=== PATIENT | female | born 1990 | race Caucasian/White ===

== ENCOUNTER → 2018-03-23 09:35 | Outpatient (CLI) | payer OTHER, SELFPAY ==
[2018-03-23 11:04] LABS: Absolute Lymphocyte Count 1.98 X10^3/ul (0.83-4.51); Absolute Neutrophil Count 4.7 X10^3/uL (2.0-7.7); Basophil# 0.01 X10^3/uL; Basophil% 0.1 % (0-1); Eosinophil# 0.18 X10^3/uL; Eosinophils% 2.3 % (0-5); Hematocrit 39.5 % (37-47); Hemoglobin 13.2 g/dl (12.0-15.0); Lymphocyte # 1.98 X10^3/ul (4.0); Lymphocyte % 25.7 % (19-41); Mean Corp Hgb Conc 33.4 g/gl (32-36); Mean Corpuscular Hgb 28.2 pg (27.0-32.0); Mean Corpuscular Volume 84.4 fL (81-99); Mean Platelet Vol. 9.4 fl (6.2-12.0); Monocyte# 0.83 X10^3/uL; Monocyte% 10.8 % (0-10); Neutrophil # 4.68 X10^3/uL (2.7-7.7); Neutrophil % 60.8 % (47-70); Platelet Count 328 K/mm3 (150-450); RBC Distribution Width CV 14.2 % (11.6-14.6); RBC Distribution Width SD 43.1 fl (35.1-43.9); Red Blood Count 4.68 M/mm3 (4.2-5.4); White Blood Count 7.7 K/mm3 (4.4-11.0)
[2018-03-23 11:07] LABS: POSITIVE COUNT NO; POSITIVE DIFFERENTIAL NO; POSITIVE MORPHOLOGY NO
[2018-03-23 11:36] LABS: ALB/GLOB Ratio 0.8 RATIO (0.9-2.4); AST(SGOT) 39 U/L (15-37); Alanine Aminotransfer ALT/SGPT 41 U/L (13-56); Albumin, Serum 3.2 g/dL (3.2-5.0); Alkaline Phosphatase 93 U/L (45-117); Anion Gap 9 (5-15); BUN 7 mg/dL (7-18); BUN/Creat Ratio 12.8 RATIO (10-20); Calcium,Total 8.6 mg/dL (8.5-10.1); Chloride 107 mmol/L (98-107); Creatinine, Serum 0.55 mg/dL (0.55-1.02); EST Glomerular Filtration Rate 141 mL/min (>60); Est Glom Filt Rate - Afr Amer 171 mL/min (>60); Globulin 4.2 g/dL (2.2-4.2); Glucose 104 mg/dL (74-106); Glucose Challenge Gest 1H 50g 104 mg/dL (70-140); Potassium 3.5 mmol/L (3.5-5.1); Protein, Total 7.4 g/dL (6.4-8.2); Sodium Level 140 mmol/L (136-145)
[2018-03-24 11:23] LABS: HIV - WCH Non-Reactive (Nonreactive); Rubella IgG 171.4 IU/mL
[2018-03-25 03:07] LABS: HCV Quant. RNA PCR 2490000 IU/mL (.)
[2018-03-25 12:00] LABS: HCV log 10 6.396 (.); HEPATITIS B SURFACE AG Negative (Negative)
[2018-03-26 01:20] LABS: Rapid Plasmin Reagin (RPR) NONREACTIVE (NONREACTIVE)
== END ==
PROVIDERS: Family Provider Obstetrics & Gynecology; PCP Obstetrics & Gynecology; Visit Provider Obstetrics & Gynecology
DX: Z12.4 Encounter for screening for malignant neoplasm of cervix (principal); Z34.90 Encounter for supervision of normal pregnancy, unspecified, unspecified trimester
CPT/HCPCS: 36415; 80053; 82950; 85025; 86592; 86703; 86762; 86850; 86900; 87340; 87522

== ENCOUNTER → 2018-03-23 19:13 | Outpatient (CLI) | payer OTHER, SELFPAY ==
[2018-03-23 22:42] LABS: Chlamydia Trachomatis by PCR Negative (Negative); Neisserai gonorrhoeae by PCR Negative (Negative); Probe Check PASS; Sample Adequacy Control PASS; Specimen Processing Control PASS
[2018-03-25 14:44] LABS: HPV Reflexed? NOT INDICATED
== END ==
PROVIDERS: Visit Provider Obstetrics & Gynecology
DX: Z12.4 Encounter for screening for malignant neoplasm of cervix (principal); Z34.90 Encounter for supervision of normal pregnancy, unspecified, unspecified trimester
CPT/HCPCS: 87086; 87088; 87491; 87591; 88175; G0145

== ENCOUNTER 2018-03-27 00:06 | Emergency (ER) | payer OTHER, SELFPAY ==
[2018-03-27 00:06] VITALS: BP 160/99; PULSE 114; RESP 16; TEMP 36.6; O2SAT 99; BMI 42.0
--- NOTE | 2018-03-27 00:30 | ED.DCSUM_ITS ---
- ER Visit Summary Date of Service: 03/27/18 Chief Complaint: Acute right ear pain History of Present Illness: The patient is a 27 F who presents with acute right ear pain. She stated I believe I was bit by a bug or there is a bug in my ear . She denies swimming. She denies putting anything in her ear. She states if she touches the canal she has pain. She believes it is swollen. She denies any drainage. She does report muffled hearing. She denies fever, chills night sweats. She denies runny nose, postnasal drainage or sore throat. Physical Examination: Next field vital signs remarkable blood pressure 160/97. Heart rate 114. There is discomfort with pulling on the auricle pushing on the tragus on the right. The external auditory canals narrowed and erythematous. There is no drainage. TM is normal. The left ear is normal. Pupils equal round reactive. Extra muscle intact. Conjunctive is not injected. Nares patent with no discharge. Posterior pharynx without erythema XA. Uvula is midline. There is no cervical lymphadenopathy. Test Results: None Emergency Department Course and Treatment: Patient was treated with Cortisporin otic suspension. The bottle was dispensed since pharmacies are closed. Treatment Plan: Cortisporin otic suspension, 4 drops 4 times a day for the next 5-7 days. Disposition: Discharge to home Impression: Acute right otitis externa This note was generated with [employer] dictation software. It may contain incorrect words, spelling, and punctuation that were not noted in review of the chart prior to signing ED Disposition - Plan for ED Patient: Disposition: Home or Assisted Living Chief Complaint: Ear Problem Instructions: ED Otitis Externa Referrals: Care Physician,No Primary [Primary Care Provider] - Additional Instructions: Instill 4 drops of the ear medication 4 times a day for the next 5-7 days. You will need to contact your insurance carrier for referral to primary care physician since she relocated. She states she moved from [facility].
[2018-03-27] MEDS: Neomycin Sulfate/Polymyxin/Hc Susp 10 ML Bottle 4 DRP OTIC (00:41)
== END 2018-03-27 00:52 | disposition home or self-care (01) ==
LOC: ED 00:32
PROVIDERS: Emergency Provider Emergency Medicine
DX: H60.501 Unspecified acute noninfective otitis externa, right ear (principal); Z72.0 Tobacco use
CPT/HCPCS: 99282

== ENCOUNTER → 2020-01-27 12:21 | Outpatient (CLI) | payer MEDICAID, SELFPAY ==
[2020-01-27 13:52] LABS: Absolute Neutrophil Count 4.9 X10^3/uL (2.0-7.7); Basophil# 0.06 X10^3/uL; Basophil% 0.8 % (0-1); Eosinophil# 0.19 X10^3/uL; Eosinophils% 2.4 % (0-5); Hematocrit 45.8 % (37-47); Hemoglobin 14.8 g/dL (12.0-15.0); Lymphocyte % 26.6 % (19-41); Mean Corp Hgb Conc 32.3 g/dL (32-36); Mean Corpuscular Hgb 28.1 pg (27.0-32.0); Mean Corpuscular Volume 87.1 fL (81-99); Mean Platelet Vol. 9.6 fl (6.2-12.0); Monocyte# 0.62 X10^3/uL; Monocyte% 7.9 % (0-10); NRBC Flagged by Analyzer 0 % (0-5); Neutrophil # 4.89 X10^3/uL (2.7-7.7); Platelet Count 329 K/mm3 (150-450); RBC Distribution Width SD 40.9 fl (35.1-43.9); Red Blood Count 5.26 M/mm3 (4.2-5.4); White Blood Count 7.9 K/mm3 (4.4-11.0)
[2020-01-27 14:08] LABS: Internal QC Validated? YES +Cl - CLEAR BKGD; Pregnancy, Urine Negative Negative
[2020-01-27 14:20] LABS: BUN 9 mg/dL (7-18); Creatinine, Serum 0.84 mg/dL (0.55-1.02); EST Glomerular Filtration Rate 85 mL/min (>60); Glucose 130 mg/dL (74-106)
[2020-01-27 14:21] LABS: ALB/GLOB Ratio 0.8 RATIO (0.9-2.4); AST(SGOT) 39 U/L (15-37); Alanine Aminotransfer ALT/SGPT 43 U/L (13-56); Albumin, Serum 3.7 g/dL (3.2-5.0); Alkaline Phosphatase 154 U/L (45-117); Anion Gap 9 (5-15); BUN/Creat Ratio 10.7 RATIO (10-20); Calcium,Total 9.1 mg/dL (8.5-10.1); Chloride 104 mmol/L (98-107); Est Glom Filt Rate - Afr Amer 103 mL/min (>60); Globulin 4.4 g/dL (2.2-4.2); Potassium 3.7 mmol/L (3.5-5.1); Protein, Total 8.1 g/dL (6.4-8.2); Sodium Level 138 mmol/L (136-145)
== END ==
DX: B18.2 Chronic viral hepatitis C (principal)
CPT/HCPCS: 36415; 80053; 80307; 81025; 85025; 87522

== ENCOUNTER → 2020-05-03 13:39 | Outpatient (CLI) | payer MEDICAID, SELFPAY ==
[2020-05-03 14:33] LABS: Absolute Lymphocyte Count 2.66 X10^3/uL (0.83-4.51); Absolute Neutrophil Count 4.8 X10^3/uL (2.0-7.7); Basophil# 0.05 X10^3/uL; Basophil% 0.6 % (0-1); Eosinophils% 3.5 % (0-5); Hematocrit 42.7 % (37-47); Hemoglobin 13.5 g/dL (12.0-15.0); Lymphocyte # 2.66 X10^3/ul (4.0); Lymphocyte % 30.6 % (19-41); Mean Corp Hgb Conc 31.6 g/dL (32-36); Mean Corpuscular Hgb 28.4 pg (27.0-32.0); Mean Corpuscular Volume 89.7 fL (81-99); Mean Platelet Vol. 9.1 fl (6.2-12.0); Monocyte# 0.83 X10^3/uL; Monocyte% 9.6 % (0-10); NRBC Flagged by Analyzer 0 % (0-5); Neutrophil # 4.81 X10^3/uL (2.7-7.7); Neutrophil % 55.4 % (47-70); Platelet Count 355 K/mm3 (150-450); RBC Distribution Width CV 13.2 % (11.6-14.6); RBC Distribution Width SD 42.9 fl (35.1-43.9); Red Blood Count 4.76 M/mm3 (4.2-5.4); White Blood Count 8.7 K/mm3 (4.4-11.0)
[2020-05-03 15:05] LABS: ALB/GLOB Ratio 0.7 RATIO (0.9-2.4); AST(SGOT) 22 U/L (15-37); Alanine Aminotransfer ALT/SGPT 28 U/L (13-56); Albumin, Serum 3.2 g/dL (3.2-5.0); Alkaline Phosphatase 87 U/L (45-117); Anion Gap 3 (5-15); BUN 8 mg/dL (7-18); BUN/Creat Ratio 10.7 RATIO (10-20); Calcium,Total 8.6 mg/dL (8.5-10.1); Chloride 108 mmol/L (98-107); Creatinine, Serum 0.74 mg/dL (0.55-1.02); EST Glomerular Filtration Rate 97 mL/min (>60); Est Glom Filt Rate - Afr Amer 118 mL/min (>60); Globulin 4.6 g/dL (2.2-4.2); Glucose 129 mg/dL (74-106); Potassium 3.8 mmol/L (3.5-5.1); Protein, Total 7.8 g/dL (6.4-8.2); Sodium Level 138 mmol/L (136-145)
[2020-05-09 03:06] LABS: HCV Quant. RNA PCR HCV Not Detected IU/mL (.)
== END ==
DX: B19.20 Unspecified viral hepatitis C without hepatic coma (principal)
CPT/HCPCS: 36415; 80053; 85025; 87522

== ENCOUNTER 2020-06-13 18:29 | Emergency (ER) | payer MEDICAID, SELFPAY ==
[2020-06-13 18:30] VITALS: BP 148/128; PULSE 75; RESP 17; TEMP 36.6; O2SAT 92; BMI 58.4
[2020-06-13] MEDS: Ketorolac 30 MG/ML Syringe IM (19:14)
--- NOTE | 2020-06-13 19:17 | ED.VIS.GEN ---
History of Present Illness Chief Complaint: Back Informant: Patient Narrative: Patient is a 29-year-old female with a past medical history of psoriatic arthritis who presents to the emergency department for left-sided back pain. This has been present over the past 3 weeks. She states it has been constant. Certain movements do make it worse. She describes as a sharp pain. Currently a 7 out of 10. She has been taking Aleve at home without any relief. She has had pains like this many times before in the past that she relates to arthritis. No radiation of the pain down her legs. Middle left side of the back. Does have some pain when palpating the area. She states she does have a history of kidney stones but she knows that this is not a kidney stone. Any urinary symptoms. No hematuria. No change in bowel habits. No nausea vomiting. No chest pain or shortness of breath. She denies any fevers or chills. No saddle anesthesia. She denies any trauma. No inciting event 3 weeks ago. States that she typically gets steroids for this and it goes away. Denies any chance of being . Past Medical History - Allergies and Home Meds Allergies/Adverse Reactions: Allergies No Known Allergies Allergy (Verified 03/27/18 00:08) Primary Care Physician: Alex Urias MD [Primary Care Provider] - 3-5 Days if not improving Prior records reviewed: Yes Past Medical History: - - Hepatitis C, psoriatic arthritis Smoking Status: Current every day smoker Alcohol: None Drugs: None Review of Systems All systems negative except as indicated General: Denies: Chills, Fever, Sweats Eyes: Denies: Visual changes - bilaterally, Diplopia ENT: Denies: Rhinorrhea, Sore throat Cardiovascular: Denies: Chest pain, Palpitations Respiratory: Denies: Dyspnea, Cough, Dyspnea on exertion Gastrointestinal: Denies: Abdominal pain, Nausea, Vomiting, Diarrhea Genitourinary: Denies: Dysuria, Hematuria, Frequency Musculoskeletal: Reports: Back pain. Denies: Extremity Pain Skin: Denies: Rash, Wounds Neurological: Denies: Headache, Weakness, Numbness Physical Exam Vital Signs/Narrative: Vital Signs Temp Pulse Resp BP Pulse Ox 06/13/20 18:30 97.8 F 75 17 148/128 H 92 Inital Vital Signs reviewed: Yes General: Well nourished, Obese, No Acute Distress Head: Normocephalic, Atraumatic Eyes: Perrl, EOMI ENT: Moist mucous membranes, No rhinorrhea Neck: Supple, Nontender Cardiovascular: Regular rate, Regular rhythm, No murmurs Respiratory: No distress, CTA bilaterally, Chest nontender Abdomen: Soft, Nontender, Nondistended, Normal bowel sounds Back: Normal Inspection, - - Does have tenderness along the left flank and left inferior ribs to palpation. No overlying skin changes. No crepitus appreciated.. Negative for: Spinal tenderness Extremities: Nontender, No edema. Negative for: Tenderness, Calf Tenderness Skin: Normal color, No rash Neurological: Alert, Oriented x3, Cranial nerves II-XII grossly intact, Normal Strength, Normal Sensation Psychological: Normal affect, Normal Mood Diagnostic/Tx/Re-eval - Medical Decision Making Patient presents to the emergency department for acute on chronic exacerbation of back pain that is nontraumatic. Upon arrival to the ED vital signs within normal limits. Physical exam is benign except for some mild tenderness with palpation. I did recommend that we do at least a urinalysis, and potentially do a CT scan to evaluate for kidney stone. She is refusing at this time states that she knows what is going on and she only wants steroids. I told her the risks associated with not getting a further work-up and she understands. I did offer her a Toradol shot and she accepts this. We will put her on a short course of prednisone. She does have a PCP that she is going to follow-up with about this. Warning signs and symptoms for which to return to the emergency department reviewed with her. She understands and is agreeable this plan. She will be discharged home in stable condition. ED Disposition - Plan for ED Patient: Disposition: Home or Assisted Living Diagnosis: Back pain Instructions: ED Back Pain Acute or Chronic Prescriptions: Prednisone [Deltasone] 40 mg PO DAILY #10 tab Transmission Status: Received by FIONA [facility]UCK[facility]-[address] [facility] Referrals: Alex Urias MD [Primary Care Provider] - 3-5 Days if not improving
[2020-06-13 19:42] VITALS: RESP 16
== END 2020-06-13 19:43 | disposition home or self-care (01) ==
PROVIDERS: Emergency Provider Emergency Medicine; PCP Family Medicine
DX: M54.9 Dorsalgia, unspecified (principal); L40.50 Arthropathic psoriasis, unspecified; Z87.442 Personal history of urinary calculi; M19.90 Unspecified osteoarthritis, unspecified site; F17.200 Nicotine dependence, unspecified, uncomplicated; Z86.19 Personal history of other infectious and parasitic diseases
CPT/HCPCS: 96372; 99282

== ENCOUNTER 2021-08-28 15:27 | Emergency (ER) | payer MEDICAID, SELFPAY ==
[2021-08-28 15:28] VITALS: BP 112/83; PULSE 120; RESP 19; TEMP 36.6; O2SAT 96; BMI 46.3
--- NOTE | 2021-08-28 15:47 | EDS_ITS ---
HPI HPI - GI History of Present Illness Chief Complaint: Nausea/Vomiting Narrative Narrative: 31-year-old female presenting with nausea, vomiting. She states it started yesterday. Patient reports that the night before she made some chicken and states that the last bite tasted like it was undercooked and she tried to spit as much of the side of her mouth that she could. She woke up the next morning with nausea and vomiting. She states she vomited multiple times yesterday. She states she was sweaty and thought she may have a fever however she has not checked her temperature. She did not take anything for a fever yesterday. She reports that she is better today and was able to take some Tylenol earlier today and did tolerate this. She has been able to tolerate small bites of food and small sips of water. She does not have any diarrhea. She describes abdominal cramping however. She does state that she might have slight dysuria. She denies hematuria or urinary frequency. She does state that she has no concern for . [facility] Medical History Hepatitis C Thyroid nodule Home Medications bupropion HCl 300 mg PO DAILY 06/13/20 [History Last Taken Unknown] paroxetine HCl 40 mg PO DAILY 06/13/20 [History Last Taken Unknown] prednisone 40 mg PO DAILY #10 tab 06/13/20 [Rx Last Taken Unknown] cephalexin 500 mg PO Q12 #14 capsule 08/28/21 [Rx Last Taken Unknown] famotidine [Pepcid] 20 mg PO BID PRN #14 tab 08/28/21 [Rx Last Taken Unknown] promethazine 25 mg PO TID PRN #20 tab 08/28/21 [Rx Last Taken Unknown] Allergy/AdvReac Type Severity Reaction Status Date / Time No Known Allergies Allergy Verified 08/28/21 15:29 Family History Mother Cancer Social History Smoking Status: Current every day smoker tobacco type: cigarettes alcohol intake: never substance use type: does not use caffeine: Yes what type of physical activity do you participate in: walking seatbelt use: always do you feel safe at home: Yes additional social history: Dany Chisholm Patient does not work ROS ROS ED Constitutional Constitutional ED: Reports subjective and sweats; Denies chills ENT ENT ED: Denies rhinorrhea or sore throat Cardiovascular Cardiovascular: Denies chest pain or palpitations Respiratory/Chest Respiratory/Chest: Denies cough, dyspnea or dyspnea on exertion Gastrointestinal Gastrointestinal: Reports nausea, vomiting and other Details: Abdominal cramping Genitourinary Genitourinary ED: Reports dysuria; Denies hematuria or urinary frequency Musculoskeletal Musculoskeletal: Denies arthralgias or myalgias Integumentary Denies Abrasions or rash Neurologic Neurologic: Denies headache(s) or paresthesias EXAM Physical Exam Const Vital Signs: 08/28/21 15:28 08/28/21 16:25 08/28/21 16:55 Temperature 98 F Temperature Source Temporal Pulse Rate 120 H 105 H 95 Respiratory Rate 19 H 14 16 Blood Pressure 112/83 H Blood Pressure Mean 92 Pulse Ox 96 99 94 Oxygen Delivery Method Room Air Room Air Room Air Positive well nourished General Appearance ED: NAD; Negative for pallor HEENT Reports moist mucous membranes normocephalic and atraumatic Eyes PERRL and EOMs intact bilaterally Resp normal respiratory effort and clear to auscultation bilaterally Cardio regular rhythm Rate: bradycardia GI non-tender and non-distended Palpation: soft Neuro Sensorium / Orientation: alert, oriented to person, oriented to place and oriented to time Psych mental status grossly normal and thought process normal Skin General Skin Exam: Negative for jaundice or pallor MDM MDM MDM Narrative Medical decision making narrative: Patient presenting with improved nausea and vomiting. She states he is already had COVID-19 and does not have concern for this as the source. She does believe she might have eaten some undercooked chicken. She states that she is actually improving today. She tried some home Zofran and she states she was able to get some sleep with this but still had some breakthrough vomiting. She states initially she tried to eat too much and this may have caused her to vomit. She has been able to hold down small amounts of food and fluids today. I will check a urinalysis and give her some IM Phenergan and reevaluate her. If she is feeling improved I will try to get her home with Phenergan. Patient feels improved after Phenergan. She is able to drink some water. She was found to have a urinary tract infection. She is given the first dose of Keflex in the ED. She was given a prescription for Keflex, Pepcid, Phenergan. Urine culture was sent. Patient stable for discharge. Impression: 1. Nausea/vomiting 2. UTI Lab Data Attestation: I reviewed the patient's lab results. Labs: Laboratory Results - last 24 hr 08/28/21 16:21 Urine Color Griselda Urine Clarity Cloudy Urine pH 6.0 Ur Specific [place] 1.020 Urine Protein 500 H Urine Glucose (UA) Normal Urine Ketones 5 H Urine Occult Blood 250 H Urine Nitrite Positive H Urine Bilirubin 1 H Urine Urobilinogen 8 H Ur Leukocyte Esterase 500 H Discharge Plan Triage Chief Complaint: Nausea/Vomiting ED Provider: Antonio Miranda Dx/Rx/DC Orders Instructions: ED Vomiting (Adult) Prescriptions: New famotidine [Pepcid] 20 mg tablet 20 mg PO BID PRN (Reason: heartburn) Qty: 14 RF: 0 promethazine 25 mg tablet 25 mg PO TID PRN (Reason: nausea and vomiting) Qty: 20 RF: 0 cephalexin 500 mg capsule 500 mg PO Q12 Qty: 14 RF: 0 No Action paroxetine HCl 40 MG tablet 40 mg PO DAILY RF: 0 bupropion HCl 300 MG tablet extended release 24 hr 300 mg PO DAILY RF: 0 prednisone 20 MG tablet 40 mg PO DAILY Qty: 10 RF: 0 Primary Care Provider: Radha Rondon Referrals: Radha Rondon MD [Primary Care Provider] - Disposition Disposition: Home, Self Care
[2021-08-28] MEDS: proMETHazine 25 MG/ML Syringe 12.5 MG IM (15:57)
[2021-08-28 16:25] VITALS: PULSE 105; RESP 14; O2SAT 99
[2021-08-28 16:26] LABS: Mucous, Urine 0 SEEN /hpf (<or=2+)
[2021-08-28 16:34] LABS: Color, Urine Amber (Yellow); Glucose, Dipstick Normal (Normal); Ketone-Dipstick 5 mg/dl (Negative); Leukocyte Esterase-Dipstick 500 /ul (Negative); Nitrite-Dipstick Positive (Negative); Occult Blood-Urine 250 /ul (Negative); Protein-Dipstick 500 mg/dl (Negative); Urine Clarity Cloudy (Clear); Urine Urobilinogen 8 mg/dl (Normal)
[2021-08-28 16:36] LABS: Urine Bilirubin Dipstick 1 mg/dL (Negative)
[2021-08-28 16:55] VITALS: PULSE 95; RESP 16; O2SAT 94
[2021-08-28] MEDS: Cephalexin 250 MG Capsule 500 MG PO (17:06)
[2021-08-28 17:09] LABS: Bacteria 2+ /hpf (None Seen); Red Blood Cells-Urine 0-5 SEEN /hpf (0-5); Squamous Epithelial Cells - UA 5-10 SEEN /hpf (5-10); White Blood Cells >100 SEEN /hpf (0-5)
== END 2021-08-28 17:15 | disposition home or self-care (01) ==
PROVIDERS: Emergency Provider Student in an Organized Health Care Education/Training Program; PCP Pediatrics
DX: R11.2 Nausea with vomiting, unspecified (principal); N39.0 Urinary tract infection, site not specified; F17.210 Nicotine dependence, cigarettes, uncomplicated; Z79.52 Long term (current) use of systemic steroids; Z86.19 Personal history of other infectious and parasitic diseases
CPT/HCPCS: 81001; 87086; 87088; 87186; 96372; 99283; A4216

== ENCOUNTER 2021-09-19 16:55 | Observation (INO) | payer MEDICAID, SELFPAY ==
[2021-09-19 17:00] VITALS: BP 141/108; PULSE 71; RESP 20; TEMP 36; O2SAT 97; BMI 56.5
[2021-09-19 17:11] VITALS: BP 141/108; PULSE 71; RESP 18; TEMP 36; O2SAT 97
--- NOTE | 2021-09-19 17:14 | CT_ITS ---
STUDY: CT ABDOMEN AND PELVIS WITHOUT CONTRAST REASON FOR EXAM: Female, 31 years old. Right lower quadrant pain with nausea and vomiting. Recent UTI. History of hepatitis C and Kaposi''s sarcoma. RADIATION DOSAGE (If Supplied By Facility): CTDIvol = ( 24.17 ) mGy, DLP = ( 1292.27 ) mGycm TECHNIQUE: Transaxial images were obtained from the dome of the diaphragm to the symphysis pubis without oral contrast, and without intravenous contrast. Sagittal and coronal images were reconstructed. Individualized dose optimization techniques were used for this CT. COMPARISON: None. FINDINGS: The visualized lung bases are unremarkable. The visualized portions of the heart are within normal limits. Normal liver. Normal gallbladder and extrahepatic biliary system. Normal spleen. Normal pancreas. Normal bilateral adrenal glands. Right kidney is normal in size and cortical thickness. There is a 0.9 x 0.6 x 1.0 cm calcification in the renal pelvis. There is mild hydronephrosis. There is prominence of the ureter with a 3 mm calcification at the UVJ (image 166, series 2). Normal left kidney. Normal left ureter. Normal visualized stomach. Normal small intestine. Normal colon. There is non-visualization of the appendix. Normal abdominal aorta. Normal inferior vena cava. Normal retroperitoneum. Normal urinary bladder. IUD in the mid to lower uterus. No adnexal mass. There is no pelvic lymphadenopathy. No free air or free fluid is seen within the peritoneal cavity. Normal abdominal wall. Normal osseous structures. CT/Abdomen/Pelvis without Cont IMPRESSION: 1. Right UVJ calculus with mild obstructive uropathy. 2. Large nonobstructing calculus in the right renal pelvis. 3. IUD which appears to lie in the lower uterine segment. 4. Otherwise normal CT of the abdomen and pelvis. Electronically Signed: Arcenio Macias DO at 19:06 EST Tel [phone], Service support ,
--- NOTE | 2021-09-19 17:15 | EDS_ITS ---
HPI HPI - GI History of Present Illness Chief Complaint: Abd Pain Detail of Chief Complaint: Abdominal pain that started about an hour ago Informant: patient Narrative Narrative: Patient presents with abdominal pain is her about an hour ago. She describes a sharp pain in her right lower abdomen. She felt nauseated with and got sweaty and clammy. She had similar pain years ago when she had a kidney stone. She denies dysuria, urgency, or frequency. She states that she was recently treated for UTI with Keflex. Patient denies any pain into her back. Patient's last menstrual period was a couple weeks ago. Prior similar symptoms: Yes PFSH PFSH Medical History Hepatitis C Thyroid nodule Home Medications bupropion HCl 300 mg PO DAILY 06/13/20 [History Last Taken Unknown] paroxetine HCl 40 mg PO DAILY 06/13/20 [History Last Taken Unknown] prednisone 40 mg PO DAILY #10 tab 06/13/20 [Rx Last Taken Unknown] cephalexin 500 mg PO Q12 #14 capsule 08/28/21 [Rx Last Taken Unknown] famotidine [Pepcid] 20 mg PO BID PRN #14 tab 08/28/21 [Rx Last Taken Unknown] promethazine 25 mg PO TID PRN #20 tab 08/28/21 [Rx Last Taken Unknown] Allergy/AdvReac Type Severity Reaction Status Date / Time No Known Allergies Allergy Verified 08/28/21 15:29 Family History Mother Cancer Social History Smoking Status: Current every day smoker tobacco type: cigarettes alcohol intake: never substance use type: does not use caffeine: Yes what type of physical activity do you participate in: walking seatbelt use: always do you feel safe at home: Yes additional social history: MacoJenna Shaferedilma Chisholm Patient does not work ROS ROS ED Constitutional Constitutional ED: Reports systems reviewed and no addt'l complaints, except as documented; Denies body ache(s), change in weight or chills Eyes Eyes: Denies acute decrease in peripheral vision, change in vision, double vision or loss of vision ENT ENT ED: Reports none; Denies ear pain, lip swelling, loss taste/smell, neck pain, otalgia or sore throat Cardiovascular Cardiovascular: Reports none; Denies abdominal pain, chest pain with activity, leg edema, lightheadedness, palpitations, rapid heart rate or syncope Respiratory/Chest Respiratory/Chest: Reports none; Denies change in mental status, dry cough, dyspnea, hemoptysis, shortness of breath at rest or shortness of breath with exertion Gastrointestinal Gastrointestinal: Reports none, abdominal pain and nausea; Denies change in stool character, diarrhea, hematemesis, hematochezia, melena, rectal bleeding or vomiting Genitourinary Genitourinary ED: Reports none; Denies abdominal discomfort, anuria, dysuria, genital pain or polyuria Musculoskeletal Musculoskeletal: Reports none; Denies arthralgias, back pain, difficulty walking, extremity pain, muscle weakness or myalgias Integumentary Reports none; Denies abscess or rash Neurologic Neurologic: Reports none; Denies abnormal gait, confusion, focal weakness, frequent falls, headache(s), loss of vision, numbness, paresthesias, radicular pain, vertigo or weakness Psychiatric Psychiatric: Reports systems reviewed and no addt'l complaints, except as documented and none; Denies behavioral changes, confusion, difficulty mimi ntrating, hallucinations, suicidal ideation, tactile hallucinations or visual hallucinations Endocrine Endocrinology: Denies none, cold intolerance, excessive sweating, fatigue or heat intolerance Hematologic/Lymphatic Hematologic/Lymphatic: Reports none; Denies anemia, easy bleeding or easy bruising Allergic/Immunologic Allergic/Immunologic ED: Denies as per HPI, none, lip swelling, mouth swelling, throat swelling, tongue swelling or hives EXAM Physical Exam Const Vital Signs: 09/19/21 17:00 09/19/21 17:11 Temperature 96.8 F L 96.8 F L Temperature Source Temporal Temporal Pulse Rate 71 71 Respiratory Rate 20 H 18 Blood Pressure 141/108 H 141/108 H Blood Pressure Mean 119 119 Pulse Ox 97 97 Oxygen Delivery Method Room Air Room Air Positive well nourished and well developed General Appearance ED: well developed and NAD HEENT Reports TM's clear and moist mucous membranes normocephalic and atraumatic; Negative for trauma or tenderness Tympanic Membrane ED: Yes TM's clear Eyes PERRL and EOMs intact bilaterally General Eye ED: Negative for pale conjunctiva or scleral icterus Neck no lymphadenopathy, supple and no JVD General: Negative for tenderness Chest Wall inspection of chest normal and palpation of chest normal Chest: Negative for tenderness Resp normal respiratory effort and clear to auscultation bilaterally Effort and Inspection: Negative for respiratory distress or pain with movement Auscultation: Negative for rhonchi, wheezes or diminished lung sounds Cardio regular rate, regular rhythm, S1 normal heart sound, S2 normal heart sound and no murmurs Peripheral Pulses: pulses 2+ throughout GI normal to inspection, nondistended, normoactive bowel sounds, soft to palpation, non-tender, non-distended and no masses GI Narrative: Pinpoint tenderness to the right lower quadrant with some guarding. There is no rebound, rigidity, or peritoneal signs. Negative CVA tenderness. Palpation: soft and tender Back/Spine no CVA tenderness and no thoracic nor lumbar tenderness Extremity normal to inspection General Extremety ED: Negative for edema General Extremity: Negative for edema Neuro oriented x3, CN's II-XII intact bilaterally, no sensory deficits noted and gait normal Sensorium / Orientation: awake, alert, oriented to person, oriented to place and oriented to time Motor Exam: strength 5/5 throughout and strength abnormal Psych mental status grossly normal Skin no rashes or lesions noted and no wounds MDM MDM MDM Narrative Medical decision making narrative: IV line established on arrival. Patient was medicated with morphine, Zofran, and Toradol. Patient was noted to have a UTI and urine culture was sent. Patient was started on Rocephin [address] scan showed a 3 mm stone at the right UVJ as well as mild hydronephrosis. Patient had to be remedicated with morphine for ongoing pain. At this point I discussed case with hospitalist will evaluate patient for admission. At this point I do not feel patient is septic. Her urolithiasis is small and feel this likely will pass. I do not feel she needs an emergent urological consultation. Lab Data Attestation: I reviewed the patient's lab results. Labs: Laboratory Results - last 24 hr 09/19/21 09/19/21 09/19/21 17:41 17:45 17:45 WBC 12.6 H RBC 4.96 Hgb 13.6 Hct 40.8 MCV 82.3 MCH 27.4 MCHC 33.3 RDW Std Deviation 38.9 RDW Coeff of Lashae 13.0 Plt Count 375 MPV 9.2 Immature Gran % (Auto) 0.400 Neut % (Auto) 76.1 H Lymph % (Auto) 14.4 L [place] % (Auto) 7.6 Eos % (Auto) 1.0 Baso % (Auto) 0.5 Absolute Neuts (auto) 9.6 H Absolute Lymphs (auto) 1.82 Nucleated RBC % 0 Sodium 139 Potassium 3.8 Chloride 108 H Carbon Dioxide 25.0 Anion Gap 6 BUN 10 Creatinine 0.87 Estim Creat Clear Calc 80.91 Est GFR (MDRD) Af Amer 98 Est GFR (MDRD) Non-Af 81 BUN/Creatinine Ratio 11.5 Glucose 133 H Calcium 9.5 Serum , Qual Urine Color Yellow Urine Clarity Cloudy Urine pH 6.0 Ur Specific [place] 1.020 Urine Protein 100 H Urine Glucose (UA) Normal Urine Ketones Negative Urine Occult Blood 250 H Urine Nitrite Positive H Urine Bilirubin Negative Urine Urobilinogen Normal Ur Leukocyte Esterase 500 H Urine RBC 0 SEEN Urine WBC 50-100 SEEN Ur Squamous Epith Cells 0 SEEN Urine Bacteria 3+ Urine Mucus 0 SEEN 09/19/21 17:45 WBC RBC Hgb Hct MCV MCH MCHC RDW Std Deviation RDW Coeff of Lashae Plt Count MPV Immature Gran % (Auto) Neut % (Auto) Lymph % (Auto) [place] % (Auto) Eos % (Auto) Baso % (Auto) Absolute Neuts (auto) Absolute Lymphs (auto) Nucleated RBC % Sodium Potassium Chloride Carbon Dioxide Anion Gap BUN Creatinine Estim Creat Clear Calc Est GFR (MDRD) Af Amer Est GFR (MDRD) Non-Af BUN/Creatinine Ratio Glucose Calcium Serum , Qual NEGATIVE Urine Color Urine Clarity Urine pH Ur Specific [place] Urine Protein Urine Glucose (UA) Urine Ketones Urine Occult Blood Urine Nitrite Urine Bilirubin Urine Urobilinogen Ur Leukocyte Esterase Urine RBC Urine WBC Ur Squamous Epith Cells Urine Bacteria Urine Mucus Radiography Diagnostic Testing: Clinical Impression(s) from Imaging Studies Abdomen/Pelvis CT 09/19/21 17:14 IMPRESSION: 1. Right UVJ calculus with mild obstructive uropathy. 2. Large nonobstructing calculus in the right renal pelvis. 3. IUD which appears to lie in the lower uterine segment. 4. Otherwise normal CT of the abdomen and pelvis. Electronically Signed: rAcenio Macias DO at 19:06 EST Tel [phone], Service support , Discharge Plan Triage Chief Complaint: Abd Pain ED Provider: Suzy Rosales Dx/Rx/DC Orders Clinical Impression: Intractable abdominal pain, Urolithiasis, UTI (urinary tract infection) Prescriptions: No Action paroxetine HCl 40 MG tablet 40 mg PO DAILY RF: 0 bupropion HCl 300 MG tablet extended release 24 hr 300 mg PO DAILY RF: 0 prednisone 20 MG tablet 40 mg PO DAILY Qty: 10 RF: 0 famotidine [Pepcid] 20 mg tablet 20 mg PO BID PRN (Reason: heartburn) Qty: 14 RF: 0 promethazine 25 mg tablet 25 mg PO TID PRN (Reason: nausea and vomiting) Qty: 20 RF: 0 cephalexin 500 mg capsule 500 mg PO Q12 Qty: 14 RF: 0 Primary Care Provider: Radha Rondon Referrals: Radha Rondon MD [Primary Care Provider] - Disposition Disposition: Acute Care Hospital [facility]
[2021-09-19] MEDS: Morphine 4 MG/ML Syringe IV ×2 (17:41→19:26)
[2021-09-19] MEDS: Ketorolac 30 MG/ML Syringe IV (17:41)
[2021-09-19] MEDS: Ondansetron 4 MG/2 ML Vial IV (17:41)
[2021-09-19 18:02] LABS: Mucous, Urine 0 SEEN /hpf (<or=2+); Red Blood Cells-Urine 0 SEEN /hpf (0-5); Squamous Epithelial Cells - UA 0 SEEN /hpf (5-10)
[2021-09-19] MEDS: 0.9% Normal Saline 1,000 ML 125 ML IV ×2 (18:03→22:43)
[2021-09-19 18:08] LABS: Absolute Lymphocyte Count 1.82 X10^3/uL (0.83-4.51); Absolute Neutrophil Count 9.6 X10^3/uL (2.0-7.7); Basophil# 0.06 X10^3/uL; Basophil% 0.5 % (0-1); Eosinophil# 0.13 X10^3/uL; Hematocrit 40.8 % (37-47); Hemoglobin 13.6 g/dL (12.0-15.0); Lymphocyte # 1.82 X10^3/ul (0.83-4.51); Lymphocyte % 14.4 % (19-41); Mean Corp Hgb Conc 33.3 g/dL (32-36); Mean Corpuscular Hgb 27.4 pg (27.0-32.0); Mean Corpuscular Volume 82.3 fL (81-99); Mean Platelet Vol. 9.2 fl (6.2-12.0); Monocyte# 0.96 X10^3/uL; Monocyte% 7.6 % (0-10); NRBC Flagged by Analyzer 0 % (0-5); Neutrophil # 9.58 X10^3/uL (2.7-7.7); Neutrophil % 76.1 % (47-70); Platelet Count 375 K/mm3 (150-450); RBC Distribution Width SD 38.9 fl (35.1-43.9); Red Blood Count 4.96 M/mm3 (4.2-5.4); White Blood Count 12.6 K/mm3 (4.4-11.0)
[2021-09-19 18:10] LABS: Color, Urine Yellow (Yellow); Glucose, Dipstick Normal (Normal); Ketone-Dipstick Negative (Negative); Leukocyte Esterase-Dipstick 500 /ul (Negative); Nitrite-Dipstick Positive (Negative); Occult Blood-Urine 250 /ul (Negative); Protein-Dipstick 100 mg/dl (Negative); Urine Bilirubin Dipstick Negative (Negative); Urine Clarity Cloudy (Clear); Urine Urobilinogen Normal (Normal)
[2021-09-19 18:23] LABS: Anion Gap 6 (5-15); BUN 10 mg/dL (7-18); BUN/Creat Ratio 11.5 RATIO (10-20); Calcium,Total 9.5 mg/dL (8.5-10.1); Chloride 108 mmol/L (98-107); Creatinine, Serum 0.87 mg/dL (0.55-1.02); EST Glomerular Filtration Rate 81 mL/min (>60); Est Glom Filt Rate - Afr Amer 98 mL/min (>60); Estimated Creatinine Clearance 80.91 ml/min; Glucose 133 mg/dL (74-106); Potassium 3.8 mmol/L (3.5-5.1); Sodium Level 139 mmol/L (136-145)
[2021-09-19 18:36] LABS: Bacteria 3+ /hpf (None Seen); White Blood Cells 50-100 SEEN /hpf (0-5)
[2021-09-19 18:36] LABS: Internal QC Validated? YES +Cl - CLEAR BKGD
[2021-09-19 18:37] LABS: Pregnancy, Serum, hCG Quali. NEGATIVE Negative
[2021-09-19] MEDS: Ceftriaxone 1 GM/50 ML BAG IV (18:54)
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
[2021-09-19 19:28] VITALS: BP 130/72; PULSE 65; RESP 18; O2SAT 97
[2021-09-19 20:08] VITALS: BP 130/72; PULSE 65; RESP 18; TEMP 36.6; O2SAT 97
[2021-09-19 20:12] VITALS: BMI 55.8
[2021-09-19 20:14] VITALS: BP 144/97; PULSE 74; RESP 16; TEMP 37.5; O2SAT 99
[2021-09-19] MEDS: HYDROmorphone 1 MG/ML Syringe IV (21:38)
--- NOTE | 2021-09-19 22:12 | PCS.PANDOC ---
PANDEMIC DOCUMENTATION INITIATED: Date: 06/17/2021 Time: 1999
[2021-09-19] MEDS: Temazepam 15 MG Capsule PO (22:43)
[2021-09-20] MEDS: proMETHazine 25 MG Tablet PO (00:12)
[2021-09-20 02:14] VITALS: BP 149/95; PULSE 92; RESP 18; TEMP 37.2; O2SAT 99
[2021-09-20] MEDS: Menthol/Lanolin/Calamine/Znox 113 GM Tube 1 APPLIC TOPICAL ×5 (02:23→20:00)
[2021-09-20] MEDS: Nystatin Powder 15gm Bottle 1 APPLIC TOPICAL ×3 (02:23→19:59)
[2021-09-20] MEDS: Mag Hydrox/Al Hydrox/Simeth 30 ML UDC PO ×2 (02:29→08:26)
[2021-09-20 05:39] LABS: Absolute Lymphocyte Count 0.57 X10^3/uL (0.83-4.51); Absolute Neutrophil Count 9.1 X10^3/uL (2.0-7.7); Basophil# 0.02 X10^3/uL; Basophil% 0.2 % (0-1); Eosinophil# 0.02 X10^3/uL; Eosinophils% 0.2 % (0-5); Hematocrit 38.9 % (37-47); Hemoglobin 12.5 g/dL (12.0-15.0); Lymphocyte # 0.57 X10^3/ul (0.83-4.51); Lymphocyte % 5.2 % (19-41); Mean Corp Hgb Conc 32.1 g/dL (32-36); Mean Corpuscular Hgb 26.7 pg (27.0-32.0); Mean Corpuscular Volume 83.1 fL (81-99); Mean Platelet Vol. 9.4 fl (6.2-12.0); Monocyte# 1.14 X10^3/uL; Monocyte% 10.5 % (0-10); NRBC Flagged by Analyzer 0 % (0-5); Neutrophil # 9.06 X10^3/uL (2.7-7.7); Neutrophil % 83.4 % (47-70); POSITIVE DIFFERENTIAL YES; Platelet Count 300 K/mm3 (150-450); RBC Distribution Width CV 13.2 % (11.6-14.6); RBC Distribution Width SD 39.6 fl (35.1-43.9); Red Blood Count 4.68 M/mm3 (4.2-5.4); White Blood Count 10.9 K/mm3 (4.4-11.0)
[2021-09-20 05:45] LABS: Differential Indicated SCAN CRITERIA MET
[2021-09-20 06:04] LABS: ALB/GLOB Ratio 0.7 RATIO (0.9-2.4); AST(SGOT) 24 U/L (15-37); Alanine Aminotransfer ALT/SGPT 27 U/L (13-56); Alkaline Phosphatase 74 U/L (45-117); Anion Gap 7 (5-15); BUN 9 mg/dL (7-18); BUN/Creat Ratio 11.8 RATIO (10-20); Calcium,Total 8.6 mg/dL (8.5-10.1); Chloride 105 mmol/L (98-107); Creatinine, Serum 0.76 mg/dL (0.55-1.02); EST Glomerular Filtration Rate 94 mL/min (>60); Est Glom Filt Rate - Afr Amer 114 mL/min (>60); Estimated Creatinine Clearance 92.62 ml/min; Globulin 4.3 g/dL (2.2-4.2); Glucose 118 mg/dL (74-106); Potassium 3.7 mmol/L (3.5-5.1); Protein, Total 7.3 g/dL (6.4-8.2); Sodium Level 137 mmol/L (136-145)
[2021-09-20] MEDS: 0.9% Normal Saline 1,000 ML 125 ML IV ×2 (06:51→15:29)
[2021-09-20 07:14] LABS: Hemoglobin A1c 5.5 % (3.8-5.6)
[2021-09-20 08:10] VITALS: BP 141/76; PULSE 101; RESP 18; TEMP 37.3; O2SAT 95
[2021-09-20] MEDS: Ondansetron 4 MG/2 ML Vial IV (08:13)
[2021-09-20] MEDS: HYDROmorphone 1 MG/ML Syringe IV ×4 (08:13→23:22)
[2021-09-20 08:14] VITALS: O2SAT 96
[2021-09-20] MEDS: DULoxetine Hcl 30 MG Capsule PO (09:46)
[2021-09-20] MEDS: Acetaminophen 325 MG Tablet 650 MG PO (09:50)
[2021-09-20] MEDS: oxyCODONE 5 MG Tablet 10 MG PO ×2 (09:50→15:33)
--- NOTE | 2021-09-20 11:50 | CASEMGMT ---
AMIRAH HI Assessment: Face to Face with pt for initial transition planning/care coordination assessment. AMIRAH HI introduced self and role at [facility], pt voices understanding and consents to assessment. Pt is A/O x4 and answers all questions appropriately at this time. Pt sitting up in bed on her cell phone. Care providers, pharmacy, and demographics verified/updated. Pt states the phone listed is not in working order but will be, pt did not give phone number of phone she was currently using. Admitting Dx: pyelonephritis, calculus PCP:ZORAN Fried [facility] Specialists:Pamella, rheum; Wei, CHIP APPLYING MACHINE TENDER; Alexx, derm; Alejandra, pain mgmt but pt sees for spinal cyst Preferred Pharmacy: [facility] Insurance: [facility] Community Plan [facility] Prescription Benefit: yes LW/HPOA: Pt denies having a LW/DPOA and denies need for info regarding AD. LNOK: Socorro Lakhani, mother Living Arrangements: Pt lives with her 12 year old son. Pt states her son is staying with her mother while she is hospitalized. Pt reports being I in ADL's and denies concerns at home. Transportation: Pt uses taxis for transportation. DME/HHC/SNF: Pt has a cane and shower chair at home. Pt denies hx of HHC or SNF stays. Pt states no concerns with going home at time of dc. Pt states no further concerns/needs. CM to follow. Advised pt to ask CM if any further question/concerns/needs arise, voices understanding. Pt Goal: Home Plan: Home
--- NOTE | 2021-09-20 12:05 | PN.HOSP_ITS ---
Documented by User: Rani Eller MANAGER OF HOUSEKEEPING-C 09/20/21 12:13 Subjective Subjective Patient seen and examined. Patient states she is feeling better however she is having continued right flank pain 7 out of 10. Patient states that pain medicine is moderately effective at reducing pain. Patient states currently pain is tolerable and she has no complaints at this time. Objective Data Objective Data Vital Signs: Vital Signs Temp Pulse Resp BP Pulse Ox 99.2 F H 101 H 18 141/76 H 96 09/20/21 08:10 09/20/21 08:10 09/20/21 08:10 09/20/21 08:10 09/20/21 08:14 Oxygen Delivery Method Room Air Weight: 326 lb 11.601 oz Body Mass Index (BMI) 55.8 Intake & Output: Intake and Output for Last 24 Hours 09/18/21 09/19/21 09/20/21 23:59 23:59 23:59 Intake Total 568.75 / 568.75 2200 / 2200 Output Total 1125 / 1125 Balance 568.75 / 568.75 1075 / 1075 Lab / Micro Data Result Diagrams: 09/20/21 04:55 09/20/21 04:55 Labs: Laboratory Results - last 24 hr 09/19/21 17:41: Urine Color Yellow, Urine Clarity Cloudy, Urine pH 6.0, Ur S pecific [place] 1.020, Urine Protein 100 H, Urine Glucose (UA) Normal, Urine Ketones Negative, Urine Occult Blood 250 H, Urine Nitrite Positive H, Urine Bilirubin Negative, Urine Urobilinogen Normal, Ur Leukocyte Esterase 500 H, Urine RBC 0 SEEN, Urine WBC 50-100 SEEN, Ur Squamous Epith Cells 0 SEEN, Urine Bacteria 3+, Urine Mucus 0 SEEN 09/19/21 17:45: WBC 12.6 H, RBC 4.96, Hgb 13.6, Hct 40.8, MCV 82.3, MCH 27.4, MCHC 33.3, RDW Std Deviation 38.9, RDW Coeff of Lashae 13.0, Plt Count 375, MPV 9.2, Immature Gran % (Auto) 0.400, Neut % (Auto) 76.1 H, Lymph % (Auto) 14.4 L, [place] % (Auto) 7.6, Eos % (Auto) 1.0, Baso % (Auto) 0.5, Absolute Neuts (auto) 9.6 H, Absolute Lymphs (auto) 1.82, Nucleated RBC % 0 09/19/21 17:45: Sodium 139, Potassium 3.8, Chloride 108 H, Carbon Dioxide 25.0, Anion Gap 6, BUN 10, Creatinine 0.87, Estim Creat Clear Calc 80.91, Est GFR (MDRD) Af Amer 98, Est GFR (MDRD) Non-Af 81, BUN/Creatinine Ratio 11.5, Glucose 133 H, Calcium 9.5 09/19/21 17:45: Serum , Qual NEGATIVE 09/20/21 04:55: WBC 10.9, RBC 4.68, Hgb 12.5, Hct 38.9, MCV 83.1, MCH 26.7 L, MCHC 32.1, RDW Std Deviation 39.6, RDW Coeff of Lashae 13.2, Plt Count 300, MPV 9.4, Immature Gran % (Auto) 0.500, Neut % (Auto) 83.4 H, Lymph % (Auto) 5.2 L, [place] % (Auto) 10.5 H, Eos % (Auto) 0.2, Baso % (Auto) 0.2, Absolute Neuts (auto) 9.1 H, Absolute Lymphs (auto) 0.57 L, Nucleated RBC % 0 09/20/21 04:55: Sodium 137, Potassium 3.7, Chloride 105, Carbon Dioxide 25.0, Anion Gap 7, BUN 9, Creatinine 0.76, Estim Creat Clear Calc 92.62, Est GFR (MDRD) Af Amer 114, Est GFR (MDRD) Non-Af 94, BUN/Creatinine Ratio 11.8, Glucose 118 H, Calcium 8.6, Total Bilirubin 0.80, AST 24, ALT 27, Alkaline Phosphatase 7 4, Total Protein 7.3, Albumin 3.0 L, Globulin 4.3 H, Albumin/Globulin Ratio 0.7 L 09/20/21 04:55: Hemoglobin A1c 5.5 Radiography Diagnostic Testing: Radiology Impression Abdomen/Pelvis CT 09/19/21 17:14 IMPRESSION: 1. Right UVJ calculus with mild obstructive uropathy. 2. Large nonobstructing calculus in the right renal pelvis. 3. IUD which appears to lie in the lower uterine segment. 4. Otherwise normal CT of the abdomen and pelvis. Electronically Signed: Arcenio Macias DO at 19:06 EST Tel [phone], Service support , Physical Exam Const alert, oriented x3 and no apparent distress HEENT head/scalp atraumatic Head and Scalp: normocephalic Eyes conjunctivae normal and no scleral icterus Neck full ROM and supple Resp normal respiratory effort, normal air movement and clear to auscultation bilaterally Cardio regular rate, regular rhythm, S1 normal heart sound and S2 normal heart sound GI normal to inspection, nondistended, normoactive bowel sounds, soft to palpation and non-tender GI Narrative: Pain to right flank Extremity normal to inspection, full ROM and no clubbing, cyanosis or edema Skin no rashes or lesions noted Neuro oriented x3, moves all extremities, no focal motor deficits and no sensory deficits noted Sensorium / Orientation: awake and alert Psych affect normal Assessment & Plan Assessment/Plan (1) Urolithiasis: QUALIFIERS: Urinary calculus location: other lower urinary tract location Qualified Code(s): N21.8 - Other lower urinary tract calculus (2) UTI (urinary tract infection): QUALIFIERS: Hematuria presence: without hematuria Urinary tract infection type: acute cystitis Qualified Code(s): N30.00 - Acute cystitis wi thout hematuria PLAN: 1. Acute complicated urinary tract infection with right UVJ calculus -Continue IV fluids -Monitor intake and output -Continue Rocephin, urine cultures pending -Continue as needed pain medication -Continue to strain all urine -Patient had a urine culture which was positive for presumptive E. coli on 08/28/2021 and susceptible to Rocephin 2. Hyperglycemia -Hemoglobin A1c 5.5 -Likely stress response -CBC ordered daily 3. History of polysubstance abuse with hepatitis C -Patient does not report current drug use -Patient has underwent treatment for hep C in the past 4. Anxiety and depression -Continue duloxetine 5. Morbid obesity -Encourage lifestyle modifications DVT prophylaxis-encourage ambulation, no pharmacological prophylaxis indicated This patient was seen by ANDRZEJ Connelly under the supervision of Dr. Fields. Documented by User: Dr. Mayito Fields, 09/20/21 19:33 Objective Data Lab / Micro Data Result Diagrams: 09/20/21 04:55 09/20/21 04:55 Charges/Coding Addendum Addendum: Patient was seen and examined independently of Michelle Eller today, she still is complaining of intractable pain in her right flank area and in the right lower quadrant area. Patient has a stone in the right ureter at the ureterovesical junction. I had urology review her CT scan and urology felt that the patient would be able to pass the stone given the size of it with IV fluids and analgesics. I have decided to increase the patient's pain medications tonight after talking with her. On examination she appeared in good health and spirits, she appears to be restless and uncomfortable due to right flank pain. Vital signs as documented. Skin warm and dry and without overt rashes. Neck without JVD, thyroid appears normal, trachea is midline, neck is supple. Lungs clear, normal air movement was noted. Heart exam notable for regular rhythm, normal sounds and absence of murmurs, rubs or gallops. Abdomen unremarkable and without evidence of organomegaly, masses, or abdominal aortic enlargement, bowel sounds are present in all 4 quadrants, no abdominal tenderness was noted. Patient is morbidly obese extremities nonedematous, no cyanosis was noted, no clubbing was noted. Neuro: Cranial nerves II through XII are grossly intact, no focal motor deficits were noted, sensation to light touch and pinprick is intact, motor exam 5/5 throughout. Psych: Patient is alert and oriented x3, she does not appear anxious or depressed, she does not appear agitated. At this point, we will continue IV fluids, she will strain her urine, she will be given IV narcotics and p.o. narcotics for pain. I have reviewed Michelle Eller's progress note including her medical assessment and plan of care and endorse it. Visit Charges Inpatient E&M: 46282 Subs Hosp L2
[2021-09-20] MEDS: 0.9% Saline Lock 10 ML Syringe IV ×2 (13:32→23:24)
[2021-09-20 13:50] VITALS: BP 142/81; PULSE 90; RESP 16; TEMP 36.9; O2SAT 98
[2021-09-20] MEDS: Ceftriaxone 1 GM/50 ML BAG IV (17:09)
[2021-09-20 20:00] VITALS: BP 135/86; PULSE 90; RESP 16; TEMP 36.6; O2SAT 96
[2021-09-21] MEDS: 0.9% Normal Saline 1,000 ML 125 ML IV ×2 (01:23→08:35)
[2021-09-21 01:52] VITALS: BP 125/69; PULSE 73; RESP 16; TEMP 36.8; O2SAT 99
[2021-09-21] MEDS: Acetaminophen 325 MG Tablet 650 MG PO ×2 (02:39→11:42)
[2021-09-21] MEDS: oxyCODONE 5 MG Tablet PO ×2 (02:40→11:41)
[2021-09-21] MEDS: Nystatin Powder 15gm Bottle 1 APPLIC TOPICAL (05:40)
[2021-09-21 07:22] VITALS: O2SAT 96
[2021-09-21 07:54] VITALS: BP 134/85; PULSE 72; RESP 16; TEMP 36.9; O2SAT 96
[2021-09-21] MEDS: Ondansetron 4 MG/2 ML Vial IV (08:02)
[2021-09-21] MEDS: HYDROmorphone 1 MG/ML Syringe IV (08:02)
[2021-09-21] MEDS: 0.9% Saline Lock 10 ML Syringe IV (08:03)
[2021-09-21 08:24] LABS: Absolute Neutrophil Count 3.7 X10^3/uL (2.0-7.7); Basophil# 0.03 X10^3/uL; Basophil% 0.4 % (0-1); Eosinophil# 0.24 X10^3/uL; Eosinophils% 3.3 % (0-5); Hematocrit 35.1 % (37-47); Hemoglobin 11.1 g/dL (12.0-15.0); Lymphocyte % 31.9 % (19-41); Mean Corp Hgb Conc 31.6 g/dL (32-36); Mean Corpuscular Hgb 26.7 pg (27.0-32.0); Mean Corpuscular Volume 84.4 fL (81-99); Mean Platelet Vol. 9.8 fl (6.2-12.0); Monocyte# 0.92 X10^3/uL; Monocyte% 12.7 % (0-10); NRBC Flagged by Analyzer 0 % (0-5); Neutrophil # 3.71 X10^3/uL (2.7-7.7); Neutrophil % 51.4 % (47-70); Platelet Count 291 K/mm3 (150-450); RBC Distribution Width CV 13.1 % (11.6-14.6); Red Blood Count 4.16 M/mm3 (4.2-5.4); White Blood Count 7.2 K/mm3 (4.4-11.0)
[2021-09-21 08:48] LABS: Anion Gap 7 (5-15); BUN 8 mg/dL (7-18); BUN/Creat Ratio 11.6 RATIO (10-20); Calcium,Total 8.4 mg/dL (8.5-10.1); Chloride 107 mmol/L (98-107); Creatinine, Serum 0.69 mg/dL (0.55-1.02); EST Glomerular Filtration Rate 105 mL/min (>60); Est Glom Filt Rate - Afr Amer 127 mL/min (>60); Estimated Creatinine Clearance 102.01 ml/min; Glucose 92 mg/dL (74-106); Potassium 3.6 mmol/L (3.5-5.1); Sodium Level 139 mmol/L (136-145)
--- NOTE | 2021-09-21 10:01 | CT_ITS ---
STUDY: CT ABDOMEN AND PELVIS WITHOUT CONTRAST REASON FOR EXAM: Female, 31 years old. Right kidney stone RADIATION DOSAGE (If Supplied By Facility): CTDIvol = ( 24.18 ) mGy, DLP = ( 1359.19 ) mGycm TECHNIQUE: Transaxial images were obtained from the dome of the diaphragm to the symphysis pubis without oral contrast, and without intravenous contrast. Sagittal and coronal images were reconstructed. Individualized dose optimization techniques were used for this CT. COMPARISON: None. FINDINGS: The visualized lung bases are unremarkable. The visualized portions of the heart are within normal limits. Normal liver. Normal gallbladder and extrahepatic biliary system. Normal spleen. Normal pancreas. Normal bilateral adrenal glands. 9 mm stone in the right kidney. Right hydronephrosis and right hydroureter. Normal left kidney. Normal visualized stomach. Normal small intestine. Normal colon. The appendix is visualized and appears normal. Normal abdominal aorta. Normal inferior vena cava. Normal retroperitoneum. There is a 2 mm stone at the right UVJ of the urinary bladder. IUD in the uterus. Normal abdominal wall. Normal osseous structures. CT/Abdomen/Pelvis without Cont IMPRESSION: Right renal calculus. Right hydronephrosis and hydroureter with an obstructive stone at the right UVJ. Electronically Signed: Tom Greer DO at 11:18 EST Tel [phone], Service support ,
--- NOTE | 2021-09-21 10:02 | DCINST_ITS ---
Discharge Instructions Diet Discharge Diet: No restrictions Activity Discharge Activity: Return to Normal Activity Follow Up Care Please Follow Up With: Saud Fried NP, HEALTH COMMISSIONER-C When: as scheduled Test Results: Notify PCP of admission to hospital and need for follow up Discharge Plan Admission Admit Date/Time: 09/19/21 19:26 Primary Reason for Your Visit: Pyelonephritis Attending Provider: Mayito Fields Primary Care Provider: Saud Fried NP Discharge Orders/Prescriptions Prescriptions: New acetaminophen [Tylenol] 325 mg Tablet 650 mg PO Q4H PRN PRN (Reason: Fever, pain 1-08/11) Qty: 0 RF: 0 oxycodone 10 mg tablet 10 - 15 mg PO Q4H PRN (Reason: pain) 5 Days Qty: 30 RF: 0 cefdinir 300 mg capsule 300 mg PO BID Qty: 10 RF: 0 tamsulosin [Flomax] 0.4 mg capsule 0.4 mg PO DAILY Qty: 10 RF: 0 Continued duloxetine 30 mg capsule,delayed release(DR/EC) 30 mg PO DAILY RF: 0 Referrals / Follow Up: Saud Fried NP, HEALTH COMMISSIONER-C [Primary Care Provider] - Disposition Disposition (needs filled in before D/C Order can be placed): Home, Self Care
--- NOTE | 2021-09-21 10:11 | DS.PCM_ITS ---
Documented by User: ANDRZEJ Connelly 09/21/21 11:46 Providers Date of Admission: 09/19/21 Primary Care Physician: ANDRZEJ Walters Reason For Visit: PYELONEPHRITIS, CALCULUS Diagnosis Discharge Diagnosis (1) Urolithiasis: Status: Acute Code(s): N20.9 - Urinary calculus, unspecified Qualifiers: Urinary calculus location: other lower urinary tract location Qualified Code(s): N21.8 - Other lower urinary tract calculus (2) UTI (urinary tract infection): Status: Acute Code(s): N39.0 - Urinary tract infection, site not specified Qualifiers: Hematuria presence: without hematuria Urinary tract infection type: acute cystitis Qualified Code(s): N30.00 - Acute cystitis without hematuria Medications at Discharge Home Medications duloxetine 30 mg PO DAILY 09/19/21 acetaminophen [Tylenol] 650 mg PO Q4H PRN PRN #0 tab 09/21/21 cefdinir 300 mg PO BID #10 cap 09/21/21 oxycodone 10 - 15 mg PO Q4H PRN 5 Days #30 tab 09/21/21 tamsulosin [Flomax] 0.4 mg PO DAILY #10 cap 09/21/21 Hospital Course Operations None Procedures None Summary of Care Provided Minutes Spent on Discharge: 35 Hospital Course: Patient is a 31-year-old female who came in with intractable abdominal and right flank pain. Patient underwent CT which demonstrated a kidney stone in the right kidney that was obstructive with pyelonephritis. Patient was also diagnosed with a UTI at this time. Patient has been on ceftriaxone while inpatient, will discharge on Omnicef. Patient will be discharged home with oxyco done for pain management as well as Flomax to increase chance of patient passing stone. Physical Exam Const alert, oriented x3 and no apparent distress HEENT head/scalp atraumatic Eyes conjunctivae normal and no scleral icterus Neck full ROM and supple Resp normal respiratory effort, normal air movement and clear to auscultation bilate rally Cardio regular rate, regular rhythm, S1 normal heart sound and S2 normal heart sound GI normal to inspection, nondistended, normoactive bowel sounds, soft to palpation and non-tender GI Narrative: Pain to right flank Extremity normal to inspection, full ROM and no clubbing, cyanosis or edema Skin no rashes or lesions noted and skin turgor normal Lesions: no lesions Rashes: no rashes Neuro oriented x3, moves all extremities, no focal motor deficits and no sensory deficits noted Sensorium / Orientation: awake and alert Psych affect normal Weight / BMI Weight Weight: 333 lb 8.95 oz Body Mass Index (BMI) 55.8 ABG / Lab / Microbiology Data Result Diagrams: 09/21/21 06:50 09/21/21 06:50 Laboratory: Laboratory Results - last 24 hr 09/21/21 06:50: WBC 7.2, RBC 4.16 L, Hgb 11.1 L, Hct 35.1 L, MCV 84.4, MCH 26.7 L, MCHC 31.6 L, RDW Std Deviation 40.0, RDW Coeff of Lashae 13.1, Plt Count 291, MPV 9.8, Immature Gran % (Auto) 0.300, Neut % (Auto) 51.4, Lymph % (Auto) 31.9, Saline % (Auto) 12.7 H, Eos % (Auto) 3.3, Baso % (Auto) 0.4, Absolute Neuts (auto) 3.7, Absolute Lymphs (auto) 2.30, Nucleated RBC % 0 09/21/21 06:50: Sodium 139, Potassium 3.6, Chloride 107, Carbon Dioxide 25.0, Anion Gap 7, BUN 8, Creatinine 0.69, Estim Creat Clear Calc 102.01, Est GFR (MDRD) Af Amer 127, Est GFR (MDRD) Non-Af 105, BUN/Creatinine Ratio 11.6, Glucose 92, Calcium 8.4 L Microbiology: Microbiology 09/19/21 17:40 Urine, Clean Catch Urine Culture - Final Presumptive E. coli D/C Instructions Discharge Diet: No restrictions Additional Instructions: Make sure to drink plenty of fluids, avoid carbonated beverages. Please Follow Up With: Saud Fried NP, TECHNICAL TRANSLATOR-C When: as scheduled Meaningful Use Info Meaningful Use Diagnoses (Choose all that apply): None applicable Discharge Plan Admission Admit Date/Time: 09/19/21 19:26 Primary Reason for Your Visit: Pyelonephritis Attending Provider: Mayito Fields Primary Care Provider: Saud Fried NP Discharge Orders/Prescriptions Prescriptions: New acetaminophen [Tylenol] 325 mg Tablet 650 mg PO Q4H PRN PRN (Reason: Fever, pain 1-08/11) Qty: 0 RF: 0 oxycodone 10 mg tablet 10 - 15 mg PO Q4H PRN (Reason: pain) 5 Days Qty: 30 RF: 0 cefdinir 300 mg capsule 300 mg PO BID Qty: 10 RF: 0 tamsulosin [Flomax] 0.4 mg capsule 0.4 mg PO DAILY Qty: 10 RF: 0 Continued duloxetine 30 mg capsule,delayed release(DR/EC) 30 mg PO DAILY RF: 0 Referrals / Follow Up: Saud Fried NP, TECHNICAL TRANSLATOR-C [Primary Care Provider] - Disposition Disposition (needs filled in before D/C Order can be placed): Home, Self Care Documented by User: Dr. Mayito Fields DO 09/21/21 18:15 Providers Date of Admission: 09/19/21 Reason For Visit: PYELONEPHRITIS, CALCULUS Medications at Discharge Home Medications duloxetine 30 mg PO DAILY 09/19/21 acetaminophen [Tylenol] 650 mg PO Q4H PRN PRN #0 tab 09/21/21 cefdinir 300 mg PO BID #10 cap 09/21/21 oxycodone 10 - 15 mg PO Q4H PRN 5 Days #30 tab 09/21/21 tamsulosin [Flomax] 0.4 mg PO DAILY #10 cap 09/21/21 ABG / Lab / Microbiology Data Result Diagrams: 09/21/21 06:50 09/21/21 06:50 Discharge Plan Admission Admit Date/Time: 09/19/21 19:26 Primary Reason for Your Visit: Pyelonephritis Attending Provider: Mayito Fields Primary Care Provider: Saud Fried NP Discharge Orders/Prescriptions Prescriptions: New acetaminophen [Tylenol] 325 mg Tablet 650 mg PO Q4H PRN PRN (Reason: Fever, pain 1-08/11) Qty: 0 RF: 0 oxycodone 10 mg tablet 10 - 15 mg PO Q4H PRN (Reason: pain) 5 Days Qty: 30 RF: 0 cefdinir 300 mg capsule 300 mg PO BID Qty: 10 RF: 0 tamsulosin [Flomax] 0.4 mg capsule 0.4 mg PO DAILY Qty: 10 RF: 0 Continued duloxetine 30 mg capsule,delayed release(DR/EC) 30 mg PO DAILY RF: 0 Referrals / Follow Up: Saud Fried NP, TECHNICAL TRANSLATOR-C [Primary Care Provider] - Disposition Disposition (needs filled in before D/C Order can be placed): Home, Self Care Charges/Coding Addendum Addendum: Patient was seen and examined independently of Michelle Eller today, she is still having some right flank pain but it is controlled with pain medications. Patient CT was repeated today to see if she passed the stone in her ureter, she had not, I briefly discussed her case with urology by phone today and they recommended that the patient not have any intervention right now and they felt that the stone could be passed eventually. On examination she appeared in good health and spirits, she does not appear to be in any distress. Vital signs as documented. Skin warm and dry and without overt rashes. Neck without JVD, thyroid appears normal, trachea is midline, neck is supple. Lungs clear, normal air movement was noted. Heart exam notable for regular rhythm, normal sounds and absence of murmurs, rubs or gallops. Abdomen unremarkable and without evidence of organomegaly, masses, or abdominal aortic enlargement, bowel sounds are present in all 4 quadrants, no abdominal tenderness was noted. Extremities nonedematous, no cyanosis was noted, no clubbing was noted. Neuro: Cranial nerves II through XII are grossly intact, no focal motor deficits were noted, sensation to light touch and pinprick is intact, motor exam 5/5 throughout. Psych: Patient is alert and oriented x3, she does not appear anxious or depressed, she does not appear agitated. Patient will be discharged home in stable condition, she is to follow-up with her PCP. Patient would like to be discharged today and does not want to remain in the hospital at this time. I have reviewed Michelle Eller's discharge summary including her medical assessment and plan of care and endorse it. Visit Charges Inpatient E&M: [id number] Disch Hosp
[2021-09-21] MEDS: Menthol/Lanolin/Calamine/Znox 113 GM Tube 1 APPLIC TOPICAL (10:14)
[2021-09-21] MEDS: DULoxetine Hcl 30 MG Capsule PO (10:15)
== END 2021-09-21 13:15 | disposition home or self-care (01) | DRG 463 ==
LOC: ED 19:30 → MS3 09-20 06:37
PROVIDERS: Nurse Practitioner Family; Admitting Provider Family Medicine; Emergency Provider Emergency Medicine; PCP Nurse Practitioner Family; Visit Provider Internal Medicine
DX: N13.6 Pyonephrosis (principal); E66.01 Morbid (severe) obesity due to excess calories; Z68.43 Body mass index [BMI] 50.0-59.9, adult; F41.9 Anxiety disorder, unspecified; F32.9 Major depressive disorder, single episode, unspecified; K21.9 Gastro-esophageal reflux disease without esophagitis; Z86.19 Personal history of other infectious and parasitic diseases; E04.1 Nontoxic single thyroid nodule; Z79.899 Other long term (current) drug therapy; Z79.51 Long term (current) use of inhaled steroids; F17.210 Nicotine dependence, cigarettes, uncomplicated; M79.7 Fibromyalgia; R73.9 Hyperglycemia, unspecified
CPT/HCPCS: 36415; 74176; 80048; 80053; 81001; 83036; 84703; 85025; 87086; 87088; 87186; 96361; 96365; 96366; 96375; 96376; 97802; 99218; 99285; J7030; A4216; G0378; J2405

== ENCOUNTER 2022-05-10 02:31 | Emergency (ER) | payer MEDICAID, SELFPAY ==
[2022-05-10 02:32] VITALS: BP 135/112; PULSE 77; RESP 20; TEMP 36; O2SAT 98; BMI 55.0
[2022-05-10 02:38] VITALS: BP 135/112; PULSE 60; RESP 18; TEMP 36; O2SAT 98
--- NOTE | 2022-05-10 02:59 | CT_ITS ---
EXAM: CT ABDOMEN AND PELVIS WITHOUT INTRAVENOUS CONTRAST CLINICAL INDICATION: right flank pain TECHNIQUE: Helically acquired images were obtained of the abdomen and pelvis without intravenous contrast. This CT exam was performed using one or more of the following dose reduction techniques: automated exposure control, adjustment of the mA and/or kV according to patient size, and/or use of iterative reconstruction technique. This report was created using [employer] report generation technology. RADIATION DOSE: CTDIvol = 24.18 mGy, DLP = 1268.52 mGy-cm. COMPARISON: 09/21/2021. FINDINGS: LOWER THORAX: Unremarkable. Lung bases are clear. No cardiomegaly. No significant pericardial effusion. ABDOMEN: LIVER: Unremarkable. Homogeneous. GALLBLADDER AND BILE DUCTS: Unremarkable. No calcified gallstones. No gallbladder distention or wall edema. No intra- or extrahepatic biliary ductal dilation. PANCREAS: Unremarkable. No focal cystic mass. SPLEEN: Unremarkable. Normal size without focal cystic or solid mass. ADRENALS: Unremarkable. No nodules. KIDNEYS AND URETERS: Moderate right hydronephrosis due to a 10 mm stone in the proximal ureter. Normal renal size and position. STOMACH AND BOWEL: Unremarkable. No stomach or bowel distention. No focal inflammatory change. PELVIS: APPENDIX: No evidence of acute appendicitis. BLADDER: Unremarkable. REPRODUCTIVE: IUD in the uterus. ABDOMEN and PELVIS: INTRAPERITONEAL SPACE: Unremarkable. No ascites or other fluid collection. No free air. BONES/JOINTS: Unremarkable. No suspicious lytic or blastic abnormality. SOFT TISSUES: Unremarkable. No discrete abdominal or pelvic wall hernia. VASCULATURE: Unremarkable. Abdominal aorta is non-dilated. LYMPH NODES: Unremarkable. No enlarged lymph nodes. CT/Abdomen/Pelvis without Cont IMPRESSION: Moderate right hydronephrosis due to a 10 mm stone in the proximal ureter. Electronically Signed: Jeff Bear MD at 7:08 EDT ,
[2022-05-10] MEDS: Ondansetron 4 MG/2 ML Vial IV (03:08)
[2022-05-10] MEDS: Morphine 4 MG/ML Syringe IV (03:08)
[2022-05-10] MEDS: 0.9% Normal Saline 1,000 ML 999 ML IV (03:08)
[2022-05-10 03:15] LABS: Absolute Lymphocyte Count 3.43 X10^3/uL (0.83-4.51); Absolute Neutrophil Count 7.9 X10^3/uL (2.0-7.7); Basophil# 0.05 X10^3/uL; Basophil% 0.4 % (0-1); Eosinophil# 0.16 X10^3/uL; Eosinophils% 1.3 % (0-5); Hematocrit 42.3 % (37-47); Hemoglobin 13.4 g/dL (12.0-15.0); Lymphocyte # 3.43 X10^3/ul (0.83-4.51); Lymphocyte % 27.2 % (19-41); Mean Corp Hgb Conc 31.7 g/dL (32-36); Mean Corpuscular Hgb 27.3 pg (27.0-32.0); Mean Corpuscular Volume 86.2 fL (81-99); Mean Platelet Vol. 9.4 fl (6.2-12.0); Monocyte# 1.01 X10^3/uL; NRBC Flagged by Analyzer 0 % (0-5); Neutrophil # 7.91 X10^3/uL (2.7-7.7); Neutrophil % 62.7 % (47-70); Platelet Count 427 K/mm3 (150-450); RBC Distribution Width SD 40.3 fl (35.1-43.9); Red Blood Count 4.91 M/mm3 (4.2-5.4); White Blood Count 12.6 K/mm3 (4.4-11.0)
[2022-05-10 03:28] LABS: Anion Gap 5 (5-15); BUN 12 mg/dL (7-18); BUN/Creat Ratio 14.1 RATIO (10-20); Calcium,Total 9.3 mg/dL (8.5-10.1); Chloride 102 mmol/L (98-107); Creatinine, Serum 0.85 mg/dL (0.55-1.02); EST Glomerular Filtration Rate 83 mL/min (>60); Est Glom Filt Rate - Afr Amer 100 mL/min (>60); Estimated Creatinine Clearance 82.81 ml/min; Glucose 112 mg/dL (74-106); Potassium 3.6 mmol/L (3.5-5.1); Sodium Level 137 mmol/L (136-145)
[2022-05-10] MEDS: HYDROmorphone 1 MG/ML Syringe IV ×2 (03:48→07:38)
[2022-05-10 04:36] LABS: Mucous, Urine 0 SEEN /hpf (<or=2+)
[2022-05-10 04:39] LABS: Color, Urine Yellow (Yellow); Glucose, Dipstick Normal (Normal); Ketone-Dipstick 15 mg/dl (Negative); Leukocyte Esterase-Dipstick 25 /ul (Negative); Nitrite-Dipstick Negative (Negative); Occult Blood-Urine 250 /ul (Negative); Protein-Dipstick 30 mg/dl (Negative); Urine Bilirubin Dipstick Negative (Negative); Urine Clarity Sl. Cloudy (Clear); Urine Urobilinogen Normal (Normal)
[2022-05-10 05:13] LABS: Squamous Epithelial Cells - UA 10-25 SEEN /hpf (5-10)
[2022-05-10 05:14] LABS: Bacteria 1+ /hpf (None Seen); Red Blood Cells-Urine 10-25 SEEN /hpf (0-5); White Blood Cells 0-5 SEEN /hpf (0-5)
[2022-05-10 05:18] LABS: Internal QC Validated? YES +Cl - CLEAR BKGD
[2022-05-10 05:19] LABS: Pregnancy, Urine Negative Negative
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
[2022-05-10 07:11] VITALS: BP 133/82; PULSE 58; RESP 16; O2SAT 96
[2022-05-10] MEDS: Ceftriaxone 1 GM/50 ML BAG IV (07:41)
[2022-05-10] MEDS: Acetaminophen 500 MG Tablet 1000 MG PO (08:34)
[2022-05-10 08:41] VITALS: BP 132/80; PULSE 90; RESP 18; O2SAT 96
--- NOTE | 2022-05-10 08:48 | NURSING ---
SUKHWINDER, CRISIS, CALLED. PATIENT HAS BEEN DECLINED EVERYWHERE BECAUSE OF HIS DIABETES.
== END 2022-05-10 09:02 | disposition home or self-care (01) ==
PROVIDERS: Emergency Provider Emergency Medicine; PCP Nurse Practitioner Family; Visit Provider Emergency Medicine
DX: N13.2 Hydronephrosis with renal and ureteral calculous obstruction (principal); F17.220 Nicotine dependence, chewing tobacco, uncomplicated; N23 Unspecified renal colic; M79.7 Fibromyalgia; F32.A Depression, unspecified; F41.9 Anxiety disorder, unspecified; Z86.19 Personal history of other infectious and parasitic diseases
CPT/HCPCS: 74176; 80048; 81001; 81025; 85025; 87086; 87088; 96361; 96365; 96375; 96376; 99285; J7030; A4216; J2405

== ENCOUNTER 2022-06-17 10:22 | Day surgery (SDC) | payer MEDICAID, SELFPAY ==
[2022-06-17 11:04] LABS: Internal QC Validated? YES +Cl - CLEAR BKGD; Pregnancy, Urine Negative Negative
[2022-06-17 11:09] VITALS: BP 109/90; PULSE 80; RESP 16; TEMP 36.6; O2SAT 95; BMI 51.7
--- NOTE | 2022-06-17 13:19 | EX.PCM.DISCH ---
Discharge Instructions Diet Discharge Diet: No restrictions Activity Discharge Activity: Return to Normal Activity May resume sexual activity in: No Restrictions Dressing / Incision Call your doctor if you observe: Fever of 101 or Higher, Inability to urinate and Inability to have a bowel movement Follow Up Care Please Follow Up With: Lynda Hamm MD When: In 2 to 3 weeks in the office with a KUB just prior to the appointment, call for appointment Test Results: Test results from this visit will be discussed in further detail at your follow-up appointment, if applicable. Discharge Plan Admission Attending Provider: Lynda Hamm Primary Care Provider: Saud Fried NP Discharge Orders/Prescriptions Prescriptions: New ondansetron HCl [ondansetron HCl] 8 mg tablet 8 mg PO Q8H PRN PRN (Reason: Nausea) 7 Days Qty: 20 0RF phenazopyridine [Pyridium] 200 mg tablet 200 mg PO TID PRN PRN (Reason: Bladder Spasms) 7 Days Qty: 30 0RF Continued duloxetine 30 mg capsule,delayed release(DR/EC) 20 mg PO BID Label Comments: take 1 capsule by mouth once daily acetaminophen [Tylenol] 325 mg Tablet 650 mg PO Q4H PRN PRN (Reason: Fever, pain 1-08/11) Qty: 0 0RF cephalexin 500 mg capsule 500 mg PO TID 7 Days Qty: 21 0RF oxycodone-acetaminophen 5-325 mg tablet 2 tab PO Q8 PRN (Reason: Pain) Label Comments: TAKE 2 TABLETS BY MOUTH EVERY 8 HOURS NEEDED famotidine 20 mg tablet 20 mg PO QHS Label Comments: TAKE 1 TABLET AT BEDTIME NEEDED Other Ambulatory Orders: ,Urine (Routine) Timeframe: [id number] Facility: [facility] - Location: Laboratory Ordered By: Dr. Alex Lambert Referrals / Follow Up: Saud Fried NP, STABILIZING MACHINE OPERATOR-C [Primary Care Provider] - Disposition Disposition (needs filled in before D/C Order can be placed): Home, Self Care
--- NOTE | 2022-06-17 13:21 | OP.PCM_ITS ---
Report of Operation Date of Procedure: 06/17/22 Pre-Operative Diagnosis: Right UPJ calculus with obstruction Post-Operative Diagnosis: Right mid ureteral calculus with obstruction Surgery/Procedure Performed:: Cystoscopy, right ureteroscopy, right ureteral stent insertion, right ureteral extracorporal shockwave lithotripsy Surgeon: Lynda Hamm Type of Anesthesia: General Description of Procedure: The patient is a 31-year-old female who was found to have a large greater than 1 cm right UPJ calculus with obstruction. Informed consent was obtained for placement of a right ureteral stent along with extracorporal shockwave lithotripsy. Patient was taken to the operating room and placed on the operating room table. Anesthesia monitored the head, neck, airway, IV access and vital signs throughout the case. Once anesthesia was appropriately administered the patient was placed into dorsolithotomy position was prepped and draped in usual sterile fashion. The cystoscope was inserted through the urethra under direct visualization into the urinary bladder. The bladder mucosa was visualized in its entirety and found to be without evidence of mass, lesion, erythema or abnormality. The right ureteral orifice was intubated with a 0.035 Glidewire. At this time the large stone was seen overlying the iliac bone on the right side. An attempt was made to move the stone in a more proximal position using a Pollick catheter and a Glidewire. This was unsuccessful. At this time the 0.035 Glidewire was placed with curling in the renal pelvis. The semirigid ureteroscope with the help of a 0.025 Glidewire was then used to gain access to the ureter at the area of the stone. The stone was visualized and gently pushed into a more cephalad position which was suitable for shockwave l ithotripsy. The cystoscope was then used to place a 6 [place] 26 cm JJ stent with good curling in the renal pelvis as well as the urinary bladder. The stone was then shocked with 4000 shocks and appeared to be fragmented at the conclusion of the case. The patient was then awakened and taken to the recovery room in good condition. There were no complications during this procedure Grafts/Implants Used: 6 x 26 JJ stent Complications None Admit VTE Documentation VTE Present on Admission: Yes VTE Mechan Device Prophylaxis: SCD's VTE Pharm Prophylaxis ordered?: No Reason prophylaxis not ordered:: Treatment Not Indicated
[2022-06-17 14:24] VITALS: BP 109/90; BP 153/105; PULSE 89; RESP 16; TEMP 36.2; O2SAT 97
[2022-06-17 14:30] VITALS: BP 109/90; BP 149/97; PULSE 82; RESP 16; O2SAT 99
[2022-06-17 15:00] VITALS: BP 109/90; BP 120/64; PULSE 65; RESP 16; O2SAT 97
[2022-06-17 15:19] VITALS: BP 107/91; BP 109/90; PULSE 66; RESP 16; TEMP 36.9; O2SAT 98
[2022-06-17 15:41] VITALS: BP 109/90
== END 2022-06-17 16:21 | disposition home or self-care (01) ==
LOC: SDC 10:23 → AC 10:24
PROVIDERS: Anesthesiology; PCP Nurse Practitioner Family; Referring Provider Urology; Visit Provider Urology
PROC: (CPT 50590; principal; 2022-06-17 12:00)
DX: N20.1 Calculus of ureter (principal); Z87.442 Personal history of urinary calculi; F41.9 Anxiety disorder, unspecified; F32.A Depression, unspecified; F17.200 Nicotine dependence, unspecified, uncomplicated; M54.9 Dorsalgia, unspecified; N13.30 Unspecified hydronephrosis; Z86.19 Personal history of other infectious and parasitic diseases; K21.9 Gastro-esophageal reflux disease without esophagitis
CPT/HCPCS: 50590; 50947; 00873; 81025; J7120; C2617; J2405

== ENCOUNTER → 2022-07-08 | Outpatient (CLI) | payer MEDICAID, SELFPAY ==
--- NOTE | 2022-07-08 15:33 | RAD_ITS ---
STUDY: AP SUPINE ABDOMEN AND PELVIS--2 VIEWS OF 1541 HOURS ON 07/08/2022 REASON FOR EXAM: 32-year-old female with a right ureteral stent. TECHNIQUE: A 2 view AP supine abdomen and pelvis was performed per protocol. COMPARISON: None. FINDINGS: Normal osseous structures. Normal right ureteral stent with the proximal pigtail in the right renal pelvis and the distal pigtail in the bladder. There is evidence of calcification or calculi region of the right kidney, ureter, bladder. An intrauterine device is noted in the mid pelvis. Mild constipation is present. There is no evidence of abdominal organomegaly. RAD/Abdomen Single View IMPRESSION: 1. Right ureteral stent with the proximal pigtail in the right renal pelvis and the distal pigtail in the bladder. 2. No evidence of calcification or calculi region of the kidneys. The bladder. 3. Intrauterine device in the pelvis. 4. Mild constipation. 5. No abdominal organomegaly. Electronically Signed: Dominic Lakhani MD at 1:52 EDT ,
== END | disposition home or self-care (01) ==
LOC: MTRAD 15:32
PROVIDERS: PCP Nurse Practitioner Family; Referring Provider Urology; Visit Provider Urology
DX: N13.0 Hydronephrosis with ureteropelvic junction obstruction (principal)
CPT/HCPCS: 74018

== ENCOUNTER 2024-08-12 20:20 | Emergency (ER) | payer MEDICAID, SELFPAY ==
[2024-08-12 20:21] VITALS: BP 165/98; PULSE 92; RESP 16; TEMP 36.6; O2SAT 98; BMI 55.6
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
== END 2024-08-12 21:17 | disposition home or self-care (01) ==
LOC: ED 21:05
PROVIDERS: Emergency Provider Emergency Medicine; Referring Provider Emergency Medicine; Visit Provider Emergency Medicine
DX: R09.A1 Foreign body sensation, nose (principal); F17.210 Nicotine dependence, cigarettes, uncomplicated; Z86.19 Personal history of other infectious and parasitic diseases
CPT/HCPCS: 99282